=== PATIENT | female | born 1990 | race Caucasian/White ===

== ENCOUNTER → 2018-11-25 | Outpatient (REF) | payer OTHER | LOC: M LAB REF 13:13 | PROVIDERS: ATTEND Physician Assistant Medical | DX: J02.9 Acute pharyngitis, unspecified (principal) ==

== ENCOUNTER → 2020-11-18 | Outpatient (CLI) | payer OTHER ==
--- NOTE | 2020-11-18 17:35 | REP ---
INDICATION: RIGHT BREAST LUMP. COMPARISON: None. TECHNIQUE: Right breast mammogram performed in the MLO and CC projections including implant displaced views with tomosynthesis. Spot compression views performed at the site of the palpable lump in the posterior upper outer quadrant of the right breast, the palpable lump is marked on the skin. Focused right breast ultrasound is also performed at that location. FINDINGS: There is heterogeneously dense fibroglandular tissue present. No mass or architectural distortion is seen. No clustered microcalcifications are seen. The right breast implant appears intact. Real-time sonographic evaluation of the right breast performed in the upper-outer quadrant at the site of the palpable lump. No cystic or solid nodule is seen. The Volpara volumetric breast density pattern is C. IMPRESSION: BIRADS/ACR category 1, negative. No mass or clustered microcalcifications. There is no mammographic or sonographic evidence of a mass at the site of the reported palpable abnormality in the upper outer quadrant of the right breast. A negative mammogram and ultrasound should not deter biopsy if there is a clinically suspicious palpable mass present. Clinical correlation and follow-up recommended. This patient's Tyrer-Cuzick lifetime breast cancer risk assessment score is 13 point%. This mammogram was interpreted with the aid of an FDA-approved computer-aided detection system. The patient states she had a clinical breast exam in November 2020. The patient letter being requested is M2. RECOMMENDATION: Recommend clinical correlation and follow-up. <Electronically signed by Selvin Shields > 11/18/20 [id number]
== END ==
LOC: M WHC 14:52
PROVIDERS: ATTEND Physician Assistant Medical
DX: N63.11 Unspecified lump in the right breast, upper outer quadrant (principal); Z98.82 Breast implant status
CPT/HCPCS: 76642; 77065; G0279

== ENCOUNTER → 2023-09-07 | Outpatient (REF) | payer BC | LOC: M LAB REF 09:49 | PROVIDERS: ATTEND Nurse Practitioner Family | DX: J02.9 Acute pharyngitis, unspecified (principal) ==

== ENCOUNTER → 2025-03-01 | Outpatient (CLI) | payer BC | LOC: M RAD 08:39 | PROVIDERS: ATTEND Nurse Practitioner Adult Health | DX: E04.2 Nontoxic multinodular goiter (principal) ==